=== PATIENT | male | born 1970 | race Two or more races ===

== ENCOUNTER 2018-07-14 08:56 | Emergency (ER) | payer BC ==
[~2018-07-14] VITALS: Ht 175.3 cm; Wt 81.6 kg
[2018-07-14 09:00] VITALS: BP 174/95
--- NOTE | 2018-07-14 09:00 | NUR ---
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 Pt reported that he called 911 himself. Pt AAO x4 but pale, diaphoric, severe tremor on both hands. Pt was able to change gown on his own but needs assist to postion in bed. Accu check was done upon arrival and it was 395. Dr. Bowie notified. Pt denied fall incident and chest pain. Pt is tachycardiac and having high BP which MD notified at the bedside.
--- NOTE | 2018-07-14 09:10 | NUR ---
ED Nurse Note: Pt denied drinking alcohol today. Pt reported he drank 2 shots of whiskey last night 1800.
[2018-07-14] MEDS: chlordiazePOXIDE 25mg Cap ORAL ONE ×2 (09:15→09:47)
--- NOTE | 2018-07-14 09:20 | NUR ---
ED Nurse Note: 4 caps of 25mg Librium were ordered. Pt had severe tremor to hold cup with water and spilled it. Pt refused the nurse to hold cup for him. Pt put 4 caps at once and spitted out. Pt took one by one for the second attempt and was able to swallow only 1 cap of 25mg Librium. MD notifed and 3 caps of 25mg Librium were wasted with another RN.
[2018-07-14] MEDS ORDERED: Thiamine HCl 100 MG in D5W 55 ML IV ONE (09:30)
[2018-07-14] MEDS ORDERED: LORazepam Inj 2mg/ml 1ml IV ONE (09:30)
[2018-07-14 09:54] LABS: APPEARANCE,URINE CLEAR; BILIRUBIN, URINE NEGATIVE (NEGATIVE); COLOR,URINE PALE YELLOW; GLUCOSE, URINE (UA) 4+ (NEGATIVE); KETONES,URINE 2+ (NEGATIVE); LEUKOCYTE ESTERASE ,URINE NEGATIVE (NEGATIVE); NITRITE,URINE NEGATIVE (NEGATIVE); PH,URINE 6.5 (4.5-8.0); PROTEIN,URINE 3+ (NEGATIVE); UROBILINOGEN,URINE NORMAL MG/DL (0.0-1.0)
[2018-07-14 09:55] LABS: EOSINOPHILS % (AUTO) 0.2 % (0.0-3.0); HEMATOCRIT 39.4 % (42.0-52.0); HEMOGLOBIN 14.2 G/DL (14.2-18.0); LYMPHOCYTES % (AUTO) 11.8 % (20.0-45.0); MEAN CORPUSCULAR VOLUME 92 FL (80-99); MONOCYTES % (AUTO) 6.3 % (1.0-10.0); NEUTROPHILS % (AUTO) 80.8 % (45.0-75.0); PLATELET COUNT 123 K/UL (150-450); RED BLOOD COUNT 4.27 M/UL (4.70-6.10); RED CELL DISTRIBUTION WIDTH 10.4 % (11.6-14.8); WHITE BLOOD COUNT 7.4 K/UL (4.8-10.8)
[2018-07-14] MEDS ORDERED: METFORMIN HCL500 M1 ORAL (10:08)
--- NOTE | 2018-07-14 10:18 | Emergency Room Report ---
History of Present Illness General Chief Complaint: General Complaint Source: Patient Present Illness HPI This patient has a long history of alcohol abuse. He drinks more than a bottle of wine per day. He states that he has tried to quit drinking many times in the past and gets shaking and palpitations. He has never had seizures or DTs. He states he continues to fail to be sober despite multiple attempts. He states that he has not drank since yesterday afternoon. He states he had 2 shots yesterday afternoon. Prior to that he hadn't drank at all from the morning. He states he is trying to stop drinking again. He states that this morning he woke up very shaky and anxious. He has a history of diabetes, hypertension and high cholesterol. He denies recent illness. He denies chest pain but does have palpitations. He denies abdominal pain. He states he is shaking so much he is unable to walk. He has no other complaints. Allergies: Coded Allergies: No Known Allergies (Unverified , 07/14/18) Patient History Past Medical History: see triage record, DM, HTN, other - HLP, ETOH abuse Past Surgical History: none Social History: Reports: alcohol use; Denies: smoking, drug use Reviewed Nursing Documentation: PMH: Agreed; PSxH: Agreed Nursing Documentation-PMH Hx Hypertension: Yes Hx Diabetes: Yes Review of Systems All Other Systems: negative except mentioned in HPI Physical Exam Vital Signs Date Time Temp Pulse Resp B/P (MAP) Pulse Ox O2 Delivery O2 Flow Rate FiO2 07/14/18 08:50 98.8 128 20 157/114 100 Room Air Sp02 EP Interpretation: reviewed, normal General Appearance: no apparent distress, alert, GCS 15, non-toxic Head: normocephalic, atraumatic Eyes: bilateral eye normal inspection, bilateral eye PERRL ENT: hearing grossly normal, normal pharynx, no angioedema, normal voice Neck: full range of motion, supple/symm/no masses Respiratory: chest non-tender, lungs clear, normal breath sounds, no respiratory distress, no retraction, no accessory muscle use, speaking full sentences Cardiovascular #1: regular rate, rhythm, no edema, tachycardia Gastrointestinal: normal bowel sounds, non tender, soft, non-distended, no guarding, no rebound Rectal: deferred Musculoskeletal: back normal, gait/station normal, normal range of motion, non- tender Neurologic: alert, oriented x3, responsive, motor strength/tone normal, sensory intact, speech normal, other - Course tremors/shaking diffusely Psychiatric: judgement/insight normal, memory normal, no suicidal/homicidal ideation, anxious Skin: normal color, no rash, warm/dry, well hydrated Medical Decision Making Diagnostic Impression: Primary Impression: Alcohol withdrawal ER Course This patient presented alcohol withdrawal. The patient was very tachycardic on arrival with heart rates in the 150s and 160s. The patient was also hypertensive with systolic blood pressures in the 190s. The patient was very tremulous and anxious. Patient was given IV fluids and benzodiazepines and had significant improvement in his symptoms and vital signs, specifically heart rate and blood pressure. I did attempt oral Librium on this patient initially because he did not want to be admitted and wanted to try oral medication that he could have at home, but he was unable to tolerate it secondary to shaking and tremors and was unable to swallow it. The patient also has elevated blood sugar with blood glucose in the high 300s likely a stress response and diabetic medication non-compliance. He was given IV fluids, IV thiamine and IV magnesium. I planned on admitting this patient to the ICU step down unit. However, he declined. He states that he would like to try Librium. He was educated that he should not combine Librium and alcohol. I did offer inpatient detoxification for him, given the tachycardia and hypertension as I felt that this would be a safer option for him, however he left AGAINST MEDICAL ADVICE. The patient is competent to make his own medical decisions. The patient was educated he could return if he changes his mind. He is educated that he cannot drive at this time and cannot drive on Librium. He indicated understanding. He is given return precautions and follow up instructions. Laboratory Tests Test 07/14/18 09:30 07/14/18 09:34 White Blood Count 7.4 K/UL (4.8-10.8) Red Blood Count 4.27 M/UL (4.70-6.10) L Hemoglobin 14.2 G/DL (14.2-18.0) Hematocrit 39.4 % (42.0-52.0) L Mean Corpuscular Volume 92 FL (80-99) Mean Corpuscular Hemoglobin 33.2 PG (27.0-31.0) H Mean Corpuscular Hemoglobin Concent 36.0 G/DL (32.0-36.0) Red Cell Distribution Width 10.4 % (11.6-14.8) L Platelet Count 123 K/UL (150-450) L Mean Platelet Volume 9.9 FL (6.5-10.1) Neutrophils (%) (Auto) 80.8 % (45.0-75.0) H Lymphocytes (%) (Auto) 11.8 % (20.0-45.0) L Monocytes (%) (Auto) 6.3 % (1.0-10.0) Eosinophils (%) (Auto) 0.2 % (0.0-3.0) Basophils (%) (Auto) 1.0 % (0.0-2.0) Sodium Level 137 MMOL/L (136-145) Potassium Level 3.9 MMOL/L (3.5-5.1) Chloride Level 96 MMOL/L (98-107) L Carbon Dioxide Level 23 MMOL/L (21-32) Anion Gap 18 mmol/L (5-15) H Blood Urea Nitrogen 6 mg/dL (7-18) L Creatinine 1.0 MG/DL (0.55-1.30) Estimate Glomerular Filtration Rate > 60 mL/min (>60) Glucose Level 362 MG/DL (74-106) H Calcium Level 9.4 MG/DL (8.5-10.1) Phosphorus Level 3.3 MG/DL (2.5-4.9) Magnesium Level 0.7 MG/DL (1.8-2.4) *L Total Bilirubin 1.1 MG/DL (0.2-1.0) H Direct Bilirubin 0.2 MG/DL (0.0-0.3) Aspartate Amino Transferase (AST) 32 U/L (15-37) Alanine Aminotransferase (ALT) 73 U/L (12-78) Alkaline Phosphatase 73 U/L (46-116) Total Protein 8.4 G/DL (6.4-8.2) H Albumin 4.4 G/DL (3.4-5.0) Globulin 4.0 g/dL Albumin/Globulin Ratio 1.1 (1.0-2.7) Salicylates Level 1.8 ug/mL (2.8-20) L Serum Alcohol < 3 mg/dL Urine Color Pale yellow Urine Appearance Clear Urine pH 6.5 (4.5-8.0) Urine Specific [place] 1.005 (1.005-1.035) Urine Protein 3+ (NEGATIVE) H Urine Glucose (UA) 4+ (NEGATIVE) H Urine Ketones 2+ (NEGATIVE) H Urine Blood 1+ (NEGATIVE) H Urine Nitrite Negative (NEGATIVE) Urine Bilirubin Negative (NEGATIVE) Urine Urobilinogen Normal MG/DL (0.0-1.0) Urine Leukocyte Esterase Negative (NEGATIVE) Urine RBC 2-4 /HPF (0 - 0) H Urine WBC 0-2 /HPF (0 - 0) Urine Squamous Epithelial Cells Occasional /LPF Urine Bacteria Occasional /HPF (NONE) Urine Hyaline Casts 0-2 /LPF (NONE) H Urine Opiates Screen Negative (NEGATIVE) Urine Barbiturates Screen Negative (NEGATIVE) Phencyclidine (PCP) Screen Negative (NEGATIVE) Urine Amphetamines Screen Negative (NEGATIVE) Urine Benzodiazepines Screen Negative (NEGATIVE) Urine Cocaine Screen Negative (NEGATIVE) Urine Marijuana (THC) Screen Negative (NEGATIVE) EKG Diagnostic Results Rate: tachycardiac Rhythm: other - s.tachycardia ST Segments: no acute changes Rhythm Strip Diag. Results EP Interpretation: yes Rate: 130's-150 Rhythm: other - S.tachycardia Last Vital Signs Date Time Temp Pulse Resp B/P (MAP) Pulse Ox O2 Delivery O2 Flow Rate FiO2 07/14/18 08:50 98.8 128 20 157/114 100 Room Air Status: improved Disposition: AGAINST MEDICAL ADVICE Condition: Improved Swapna Hunter DO Jul 14, 2018 10:18
[2018-07-14 10:22] LABS: ANION GAP 18 mmol/L (5-15); BLOOD UREA NITROGEN 6 mg/dL (7-18); CALCIUM 9.4 MG/DL (8.5-10.1); CARBON DIOXIDE 23 MMOL/L (21-32); CHLORIDE 96 MMOL/L (98-107); POTASSIUM 3.9 MMOL/L (3.5-5.1); SODIUM 137 MMOL/L (136-145)
[2018-07-14 10:26] LABS: ALANINE AMINOTRANSFERASE 73 U/L (12-78); ALBUMIN 4.4 G/DL (3.4-5.0); ALBUMIN/GLOBULIN RATIO 1.1 (1.0-2.7); ALKALINE PHOSPHATASE 73 U/L (46-116); ASPARTATE AMINO TRANSFERASE 32 U/L (15-37); BILIRUBIN,TOTAL 1.1 MG/DL (0.2-1.0); PHOSPHORUS 3.3 MG/DL (2.5-4.9)
[2018-07-14 10:38] LABS: BILIRUBIN,DIRECT 0.2 MG/DL (0.0-0.3)
--- NOTE | 2018-07-14 11:25 | NUR ---
ED Nurse Note: Accucheck of 305
[2018-07-14 11:40] VITALS: BP 174/95
--- NOTE | 2018-07-14 11:40 | NUR ---
ED Nurse Note: Patient is leaving AMA, Dr. Bowie has explained the risks of leaving such as , patient acknowledged and is aware of leaving AMA, patient also left without paperwork and signing discharge instructions
[2018-07-14] MEDS ORDERED: CHLORDIAZEPOXID25 MG PO (11:45)
--- NOTE | 2018-07-14 12:00 | NUR ---
ED Nurse Note: RN attempted to call and searched for the patient near exits and waiting room and was not able to find him nor reach him.
--- NOTE | 2018-07-14 12:29 | NUR ---
ED Nurse Note: RN attempted to call and leave voice message. Pt did not answer the phone and the voice mail box was not set up. MD and charge nurse made aware.
== END 2018-07-14 11:40 | disposition left against medical advice (07) ==
LOC: EDBD 08:56 → EMR 10:01 → CANBEDREQ 12:11
DX: F10.239 Alcohol dependence with withdrawal, unspecified (principal); I10 Essential (primary) hypertension; E11.9 Type 2 diabetes mellitus without complications; R00.0 Tachycardia, unspecified; E78.00 Pure hypercholesterolemia, unspecified; Z53.21 Procedure and treatment not carried out due to patient leaving prior to being seen by health care provider
CPT/HCPCS: 36415; 80053; 80307; 81003; 82248; 82962; 83735; 84100; 85025; 93005; 96365; 96367; 96375; 99284; G0480; 80329